=== PATIENT | male | born 1950 | race Caucasian/White ===

== ENCOUNTER 2018-06-18 10:28 | Emergency (ER) | payer OTHER ==
--- NOTE | 2018-06-18 10:39 | EDPHY ---
General Time Seen by Provider: 06/18/18 10:29 Narrative: CHIEF COMPLAINT: Back pain HISTORY OF PRESENT ILLNESS: Patient presents with complaints of low back pain. Pain is in the lumbar spine and somewhat right greater than left. It has been present for several days. He knows that this happens to 3 times per year and describes it as "my back goes out." The pain has been moderate to severe, starting to improve this morning. It is worse on the right than the left. Occasionally radiates into the right thigh. This caused him to fall several times, most recently yesterday. He has worse pain with palpation and movement. He has no numbness, tingling or weakness. He has no incontinence of bowel or bladder. He has been able to ambulate but very painful when doing so. He has been seen for this in the past and treated clinically with no formal diagnosis or intervention. No other associated complaints or modifying factors. REVIEW OF SYSTEMS: 10 systems were reviewed and negative with the exception of the elements mentioned in the history of present illness. PCP: [facility] SPECIALISTS: None currently PAST MEDICAL HISTORY: Back pain. PAST SURGICAL HISTORY: No surgical history SOCIAL HISTORY: Nonsmoker. Lives independently. Retired FAMILY HISTORY: Noncontributory EXAMINATION: Vitals: Triage VS reviewed General Appearance: Alert, no distress Head: normocephalic, atraumatic Eyes: Pupils equal and round, no conjunctival pallor or injection Neck: Normal inspection, supple, non-tender. No crepitus or deformity. No meningismus. Respiratory: Lungs are clear to auscultation Cardiovascular: Regular rate and rhythm no murmur Gastrointestinal: Abdomen is soft and nontender Back: Lumbar tenderness over the transverse processes and right lower paraspinous musculature. No midline crepitus, step-off or deformity. Range of motion is intact. Neurological: Cranial nerves 2-12 grossly intact. A&O, nonfocal, light sensory symmetric in the upper lower extremities. Strength is symmetric in the hips, knees, ankles. Normal proprioception of both great toes. Skin: Warm and dry, no rash Extremities: No bony tenderness. Range of motion of the extremities symmetric. Psychiatric: Mood and affect normal DIFFERENTIAL DIAGNOSES: Including but not limited to degenerative disc disease, disc bulge, disc herniation, lumbar vertebral fracture, sciatica MDM: 10:30 a.m. Acute low back pain that is consistent with patient's previous episodes of back pain and appears to be right of midline, consistent with sciatica. There is no evidence of meningitis or acute cord compression. I have ordered symptomatic medications and x-ray of the low back. 11:20 a.m. X-ray as read by me, without radiologist, reveals chronic changes no acute findings. I do feels like the patient has low back strain versus sciatica. He has no evidence of acute cord compression. We will ambulate the patient emergency department discussed with case management for assistance going home. He will likely need short course of symptomatic medications including Medrol Dosepak. I do recommend he follow up with primary care physician and a legal contracts specialist for definitive care. We discussed ED precautions for any worsening pain, numbness, tingling, weakness, incontinence of bowel or bladder, retention of bowel or bladder. 11:55 am. Patient has been visited by case management. She has provided resources for him to go home with. He has ambulated in the emergency depart without difficulty. We discussed symptomatic medications and follow up with his physicians. We discussed ED precautions as above. He is comfortable this plan. He is discharged home fully ambulatory in stable condition. SUPERVISION: This patient was independently evaluated without direct involvement of or examination by the attending physician. CONSULTATION: Case management - Diagnostics Imaging Results: Imaging Impressions Lumbar Spine X-Ray 06/18/18 10:40 Impression:L1-L2 degenerative disk disease; no acute fracture identified. - History Smoking Status: Never smoked - Objective Vital Signs: Initial Vital Signs Temperature (C) 97.9 F 06/18/18 10:29 Heart Rate 64 06/18/18 10:29 Respiratory Rate 16 06/18/18 10:29 Blood Pressure 155/91 H 06/18/18 10:29 O2 Sat (%) 96 06/18/18 10:29 O2 Delivery Mode Room Air Allergies/Adverse Reactions: No Known Allergies Allergy (Unverified 03/27/14 12:24) Home Medications: Medication Instructions Recorded No Home Meds 03/27/14 Acetaminophen [Tylenol] 650 mg PO Q6 PRN #30 capsule 06/18/18 Cyclobenzaprine [Cyclobenzaprine 5 mg PO TID PRN #12 tab 06/18/18 HCl] Ibuprofen 600 mg PO Q8 PRN #30 tablet 06/18/18 methylPREDNISolone [Medrol Dose 1 each PO AD #1 ea 06/18/18 Franki] Medications Given: Discontinued Medications Ibuprofen (Motrin) 400 mg PO EDNOW ONE Stop: 06/18/18 10:41 Last Admin: 06/18/18 10:43 Dose: 400 mg Departure - Departure Disposition: Home, Routine, Self-Care Clinical Impression: Acute low back pain Qualifiers: Back pain laterality: right Sciatica presence: with sciatica Sciatica laterality: sciatica of right side Qualified Code(s): M54.41 - Lumbago with sciatica, right side Sciatica Qualifiers: Laterality: right Qualified Code(s): M54.31 - Sciatica, right side Condition: Good Instructions: Sciatica (ED), Lumbar Radiculopathy (ED), Lower Back Exercises ( ED) Additional Instructions: 1. Medrol Dosepak as prescribed to completion 2. Flexeril as prescribed as needed 3. Ibuprofen 600 mg every 6-8 hours as needed for pain 4. Follow up with primary care physician and [facility] physician for definitive care 5. ED precautions for worsening pain, numbness, tingling, weakness, difficulty ambulating, incontinence of bowel or bladder, fever Referrals: [facility] [Outside] - As per Instructions [facility] [Outside] - As per Instructions Physician,Emergency Dept, MD [Medical Doctor] - As per Instructions Prescriptions: Acetaminophen [Tylenol] 650 mg PO Q6 PRN #30 capsule PRN Reason: back pain Cyclobenzaprine [Cyclobenzaprine HCl] 5 mg PO TID PRN #12 tab PRN Reason: muscle spasm Ibuprofen 600 mg PO Q8 PRN #30 tablet PRN Reason: Pain, Mild methylPREDNISolone [Medrol Dose Franki] 1 each PO AD #1 ea
[2018-06-18] MEDS ORDERED: IBUPROFEN 200 MG TAB PO ONE (10:40)
[2018-06-18 12:11] VITALS: BP 141/70
--- NOTE | 2018-06-18 17:57 | ASMTCMCOM ---
CM Note CM Note Notes: Pt presented to the ED via EMS from his apartment for back pain. Pt states he lives in an apartment through [employer]. Pt states he has had difficulty getting around his apartment, and cleaning up and caring for his dog. Pt states he plans on following up w/[facility] about getting set up with some extra help in his apt. Pt was provided a [facility] pamphlet and card for Isatu Goyal RN; pt states he will [facility] Pt states he was seen at [facility] "a long time ago" and otherwise is not followed by any other providers. Pt is very hard of hearing and has a cell phone but states he has difficulty operating it sometimes due to "all the buttons and options." Pt was able to ambulate well without any assistance while in the ED and called himself a cab ride home. This CM offered to have his Rxns filled by [facility] Kriss[facility] but pt preferred to get home sooner than later and said he'll fill them at a pharmacy of his choice. CM available for further assistance if needed. Date Signed: 06/18/2018 05:56 PM Electronically Signed By:Selena Chung RN
== END 2018-06-18 12:10 | disposition home or self-care (01) ==
LOC: EDUNIT#
DX: M54.41 Lumbago with sciatica, right side (principal)

== ENCOUNTER 2018-11-14 20:43 | Inpatient (IN) | payer OTHER, MEDICAID ==
--- NOTE | 2018-11-14 20:46 | EDPHY ---
HPI/HX/ROS/PE/MDM Narrative: CHIEF COMPLAINT: Fever, AMS HPI: This patient is a 68 year old male. He arrives via EMS today for evaluation of fever and altered mental status. Neighbors called EMS after they observed the patient acting strangely. The patient lives alone. EMS crews noted dark urine in the toilet bowl at the patient's home. Patient complains of back pain and says he is 'dying.' REVIEW OF SYSTEMS: A comprehensive 10 system review of systems is otherwise negative aside from elements mentioned in the history of present illness and medical decision making. PMH: Low back pain. SOCIAL HISTORY: Lives in [place]. Retired. Endorses marijuana use. PHYSICAL EXAM: General:Patient is alert, in no acute distress. He is cachectic and extremely hard of hearing. ENT:Eyes are normal to inspection. ENT inspection normal. Neck: Normal inspection. Full range of motion. Respiratory:No respiratory distress. Breath sounds normal bilaterally. Cardiovascular: Regular rate and rhythm. Strong peripheral pulses. Normal cap refill. Abdomen:The abdomen is nontender to palpation. There are no peritoneal signs. There are normal bowel sounds. Back: Normal to inspection. No tenderness to palpation. Skin: Normal color. No rash. Warm and dry. Extremities: Normal appearance. Full range of motion. Neuro: Normal motor function. Normal sensory function. ED Course: 20:47 Met EMS on arrival. 68 y/o male presents with possible altered mental status. History and exam limited as patient is quite hard of hearing. UA positive for hematuria. Labs reveal severe anemia, hyponatremia, elevated bilirubin. Patient's neighbor now at bedside who feels patient is unsafe at home and has increasing dementia. Given constellation of findings and safety concerns, we will admit the patient for further workup. - Data Points Laboratory Results: Laboratory Results 11/14/18 21:05 11/14/18 21:05 11/14/18 11/14/18 11/14/18 21:05 21:05 21:05 WBC 12.04 10^3/uL H 10^3/uL (3.80-9.50) RBC 2.72 10^6/uL L 10^6/uL (4.40-6.38) Hgb 9.3 g/dL L g/dL (13.7-17.5) Hct 25.4 % L % (40.0-51.0) MCV 93.4 fL fL (81.5-99.8) MCH 34.2 pg H pg (27.9-34.1) MCHC 36.6 g/dL g/dL (32.4-36.7) RDW 14.9 % % (11.5-15.2) Plt Count 183 10^3/uL 10^3/uL (150-400) MPV 11.3 fL fL (8.7-11.7) Neut % (Auto) 89.4 % H % (39.3-74.2) Lymph % (Auto) 6.2 % L % (15.0-45.0) [place] % (Auto) 2.7 % L % (4.5-13.0) Eos % (Auto) 0.1 % L % (0.6-7.6) Baso % (Auto) 0.2 % L % (0.3-1.7) Nucleat RBC Rel Count 0.2 % % (0.0-0.2) Absolute Neuts (auto) 10.76 10^3/uL H 10^3/uL (1.70-6.50) Absolute Lymphs (auto) 0.75 10^3/uL L 10^3/uL (1.00-3.00) Absolute Monos (auto) 0.33 10^3/uL 10^3/uL (0.30-0.80) Absolute Eos (auto) 0.01 10^3/uL L 10^3/uL (0.03-0.40) Absolute Basos (auto) 0.02 10^3/uL 10^3/uL (0.02-0.10) Absolute Nucleated RBC 0.02 10^3/uL H 10^3/uL (0-0.01) Immature Gran % 1.4 % H % (0.0-1.1) Immature Gran # 0.17 10^3/uL H 10^3/uL (0.00-0.10) PT 15.2 SEC H SEC (12.0-15.0) INR 1.25 H (0.83-1.16) Sodium 126 mEq/L L mEq/L (135-145) Potassium 3.2 mEq/L L mEq/L (3.5-5.2) Chloride 93 mEq/L L mEq/L (97-110) Carbon Dioxide 24 mEq/l mEq/l (22-31) Anion Gap 9 mEq/L mEq/L (6-14) BUN 33 mg/dL H mg/dL (7-23) Creatinine 0.9 mg/dL mg/dL (0.7-1.3) Estimated GFR > 60 Glucose 111 mg/dL H mg/dL (70-100) Calcium 8.6 mg/dL mg/dL (8.5-10.4) Total Bilirubin 4.2 mg/dL H mg/dL (0.1-1.4) Conjugated Bilirubin 1.4 mg/dL H mg/dL (0.0-0.5) Unconjugated Bilirubin 2.8 mg/dL H mg/dL (0.0-1.1) AST 64 IU/L H IU/L (17-59) ALT 57 IU/L IU/L (21-72) Alkaline Phosphatase 56 IU/L IU/L (38-126) Total Protein 6.5 g/dL g/dL (6.3-8.2) Albumin 3.0 g/dL L g/dL (3.5-5.0) Urine Color Urine Appearance Urine pH Ur Specific Fonda Urine Protein Urine Ketones Urine Blood Urine Nitrate Urine Bilirubin Urine Urobilinogen Ur Leukocyte Esterase Urine RBC Urine WBC Ur Epithelial Cells Urine Mucus Urine Glucose 11/14/18 21:00 WBC RBC Hgb Hct MCV MCH MCHC RDW Plt Count MPV Neut % (Auto) Lymph % (Auto) [place] % (Auto) Eos % (Auto) Baso % (Auto) Nucleat RBC Rel Count Absolute Neuts (auto) Absolute Lymphs (auto) Absolute Monos (auto) Absolute Eos (auto) Absolute Basos (auto) Absolute Nucleated RBC Immature Gran % Immature Gran # PT INR Sodium Potassium Chloride Carbon Dioxide Anion Gap BUN Creatinine Estimated GFR Glucose Calcium Total Bilirubin Conjugated Bilirubin Unconjugated Bilirubin AST ALT Alkaline Phosphatase Total Protein Albumin Urine Color EIVTA Urine Appearance HAZY Urine pH 5.0 (5.0-7.5) Ur Specific Fonda 1.017 (1.002-1.030) Urine Protein 1+ H (NEGATIVE) Urine Ketones NEGATIVE (NEGATIVE) Urine Blood 2+ H (NEGATIVE) Urine Nitrate NEGATIVE (NEGATIVE) Urine Bilirubin NEGATIVE (NEGATIVE) Urine Urobilinogen 4.0 EU H EU (0.2-1.0) Ur Leukocyte Esterase NEGATIVE (NEGATIVE) Urine RBC 1-3 /hpf /hpf (0-3) Urine WBC 1-3 /hpf /hpf (0-3) Ur Epithelial Cells NONE SEEN /lpf /lpf (NONE-1+) Urine Mucus TRACE /lpf /lpf (NONE-1+) Urine Glucose NEGATIVE (NEGATIVE) Medications Given: Discontinued Medications Sodium Chloride (Ns) 1,000 mls @ 0 mls/hr IV EDNOW ONE; Wide Open PRN Reason: Protocol Stop: 11/14/18 20:53 Last Admin: 11/14/18 21:08 Dose: 1,000 mls General Time Seen by Provider: 11/14/18 20:44 Initial Vital Signs: Initial Vital Signs Temperature (C) 37.1 C 11/14/18 21:00 Heart Rate 101 H 11/14/18 21:00 Respiratory Rate 18 11/14/18 21:00 Blood Pressure 115/75 11/14/18 21:00 O2 Sat (%) 96 11/14/18 21:00 O2 Delivery Mode Room Air Allergies/Adverse Reactions: No Known Allergies Allergy (Verified 11/15/18 08:49) Home Medications: Medication Instructions Recorded Acetaminophen [Tylenol] 650 mg PO Q6 PRN #30 capsule 06/18/18 Herbals/Supplements -Info Only 1 ea PO DAILY 11/15/18 Departure - Departure Disposition: [facility] ([place], [place]) Inpatient Acute Clinical Impression: Failure to thrive in adult, Dementia, Anemia, Hematuria, Hyponatremia Condition: Fair Report Scribed for: Emilio Leahy Report Scribed by: Estrella Meyer Date of Report: 11/14/18 Time of Report: 20:50 Physician Review and Approval Statement: Portions of this note were transcribed by an ED scribe. I personally performed the history, physical exam, and medical decision making; and confirm the accuracy of the information in the transcribed note.
[2018-11-14] MEDS ORDERED: NS 1,000 ML IV ONE ×2 (20:50→20:52)
[2018-11-14 21:22] LABS: PLATELET COUNT 183 10^3/uL (150-400)
[2018-11-14 21:34] LABS: INR 1.25 (0.83-1.16); PROTIME(PATIENT) 15.2 SEC (12.0-15.0)
[2018-11-15] MEDS ORDERED: ONDANSETRON 4 MG/2 ML VIAL IVP PRN (01:11)
[2018-11-15] MEDS ORDERED: ONDANSETRON DISINTEGRATING 4 MG TAB PO PRN (01:11)
[2018-11-15] MEDS ORDERED: POTASSIUM CL 20 MEQ TAB PO ONE ×2 (01:16→12:28)
[2018-11-15] MEDS: NS 1,000 ML IV SCH ×2 (02:10→17:28)
[2018-11-15 04:14] LABS: PLATELET COUNT 141 10^3/uL (150-400)
--- NOTE | 2018-11-15 07:34 | GHP ---
[f rep st] HISTORY AND PHYSICAL DATE OF ADMISSION: 11/14/2018 SOURCE: Patient provides history, is a fair historian. EMR was reviewed and case discussed with ED provider. CHIEF COMPLAINT: "My neighbors called because they thought I was acting funny." HISTORY OF PRESENT ILLNESS: This is a pleasant 68-year-old gentleman with a past medical history sig nificant for reported chronic pain, otherwise typically pretty healthy, who presents to the emergency department via EMS today for evaluation of altered mental status. Neighbors called EMS after they s aw the patient acting slightly abnormal. The patient does live alone, but he reports that his neighb ors usually try to help him. EMS brought the patient to the hospital from his home. At the time of my interview, patient denies any fevers, chills, chest pain, shortness of breath, nausea, vomiting, a bdominal pain, skin disorders, numbness or tingling. The patient goes off on tangents, but is redire ctable. The patient reports that he has been having increasing difficulties completing his ADLs. He feels generally weak. He also has had a few falls related to trip and fall on his 7-month-old puppy . The patient also had been driving up until this point, but he states that it is too much. REVIEW OF SYSTEMS: Ten systems reviewed, negative except as noted above. Patient is hard of hearing . Hears best on his left ear compared to the right. Does not have any hearing aids in place. Addit ionally, patient reports that he has lost weight over the last several months as his diet has changed significantly where previously was full of fresh foods and vegetables, and now is prepackaged foods with limited nutrition. The patient denies any night sweats. Weight loss as noted above. No change in appetite. PAST MEDICAL HISTORY: Significant for chronic back pain. Otherwise patient denies. PAST SURGICAL HISTORY: Patient denies. FAMILY HISTORY: Patient's brother with a history of leukemia. Mother and father . SOCIAL HISTORY: Patient is retired. He lives independently. He does not smoke or drink. He does u se marijuana and smokes herb. He has also utilized CBD oil. COR STATUS: Full. PHYSICAL EXAMINATION: VITAL SIGNS: Upon arrival to the emergency department, blood pressure is 115/ 75, heart rate 101, respiratory rate 18, O2 saturation 96% on room air, temperature 36.1. Current vi tals, blood pressure 86/49, heart rate 61, respiratory rate 12, O2 saturation 98, temperature 36.5. GENERAL: No acute distress. Very pleasant thin adult gentleman, elderly gentleman is lying quietly in bed. He is undergoing an abdominal ultrasound at the time of my visit. He does have some difficu lty hearing, cups his left ear. He is very pleasant. He has a long mad[place] as well as hair. Both are slightly disheveled. CV: Regular rate and rhythm. No murmurs, rubs, or gallops appreciated, but s lightly difficult due to patient talking during interview. RESPIRATORY: Lungs are clear to ausculta tion bilaterally. No wheezes, rales, or rhonchi appreciated. ABDOMEN: Positive bowel sounds. Soft , nontender to palpation. No rebound, guarding, or masses. : No suprapubic tenderness to palpati on. No Uriostegui catheter in place. MUSCULOSKELETAL: Patient moves all extremities. He is able to sit up independently. Strength is grossly normal. NEURO: Grossly nonfocal. No facial drooping. Move s all extremities as noted above. PSYCH: Thought process: Content seems plausible and appropriate. I do not have any way to verify patient's information regarding his living situation. He does note that his neighbors do take care of him quite a bit. His stories regarding his 7-month-old puppy are consistent. He otherwise is awake, alert, oriented, and answers questions appropriately. LABORATORY STUDIES: Initial WBC is 12.04, H and H is 9.3 and 35.4, MCV 93.4, platelet count is 183, neutrophil percent 89. No bands. Current a.m. blood work, WBC is 8.51, H and H is 7.5 and 21.0, MCV is 96.3, platelet count is 141, neutrophil percent 80.8, lymphocytes 14.5. PT is 15.2, INR is 1.25. Initial sodium is 126, potassium 3.2, chloride is 93, CO2 24, anion gap 9, BUN 33, creatinine 0.9. GFR greater than 60, glucose is 111, calcium is 8.6, total bilirubin is 4.2, conjugated is 1.4, ALT is 57, AST is 64, alk phos 56. Troponin is negative. Total protein 6.5, albumin is 3.0. TSH is 1.4 9. The patient's sodium did improve from 126 to 130, potassium slightly down from 3.2 to 3.1, magnes ium 1.9, total bilirubin 3.2, conjugated 1.2, ALT is 47, AST is 51. U tox is pending. UA: Specific gravity 1.017 with a pH of 5.6, protein is 1+, 2+ blood and 4 urobilinogen, otherwise negative. Nadja ges reviewed. Report is still pending. Briefly discussed with the water treatment operator. Patient does h ave numerous gallstones, but no evidence of obstruction. No abnormality seen in the bladder or right kidney. ASSESSMENT AND PLAN: Pleasant 68-year-old gentleman with a history of chronic pain who presents afte r Emergency Medical Service was called for abnormal behaviors. 1. Altered mental status. The patient's baseline is unclear. Very friendly, talkative, and otherwi se appears appropriate. He does note that he has been having progressive generalized weakness and di fficulties completing his activities of daily living. We will plan to consult physical therapy/occup ational therapy for failure to thrive. 2. Hyponatremia. The patient's sodium is improving after intravenous fluids and continue to monitor . 3. Hypokalemia. Replacement and monitoring. 4. Hypoalbuminemia due to patient's chronic illnesses. Hyperbilirubinemia is a little unusual. Ult rasound is still pending for additional evaluation. 5. Anemia. Following intravenous fluid administration is slightly down from 9.3 and 25.4 to 7.5 and 21.0. Patient without any evidence of active bleeding. Continue to monitor. 6. Fluid, electrolyte, nutrition. Intravenous fluids overnight. Electrolyte monitoring replacement as noted above. Advance diet as tolerated. 7. Prophylaxis. Sequential compression devices, holding anticoagulation. 8. COR status is full. 9. Disposition. Patient admitted to observation status on the medical/surgical floor for closer mon itoring, followup of labs and additional discussion potentially with the patient's neighbors at home. /[id number]/MODL
[2018-11-15] MEDS: ENOXAPARIN 40 MG/0.4 ML SYR SC SCH (10:39)
--- NOTE | 2018-11-15 17:20 | ASMTCMCOM ---
CM Note CM Note Notes: 11/15/2018 Case Management Note Pt admitted for AMS, FTT and hyponatremia. Pt is hard of hearing. Pt lives independently with supportive neighbors. Neighbor Karley Brandon [phone] called RN to check on pt today. Met w/pt to discuss therapy recommendations for SNF rehab. Pt in agreement. Faxed referrals to [facility], [facility], [facility] and [facility] at pt request. Case Management d/c poc: SNF rehab pending choice and acceptance. Case Management to follow. Date Signed: 11/15/2018 05:19 PM Electronically Signed By:Cielo Gant RN
[2018-11-15] MEDS: ACETAMINOPHEN 325 MG TAB PO PRN (18:31)
--- NOTE | 2018-11-15 18:45 | HOSPPROG ---
Hospitalist Progress Note Assessment/Plan: Acute vs chronic encephalopathy -Suspect 2/2 marijuana use but pt may have developing dementia vs psych disorder. -Pt may benefit from a psych consult. -Cog eval. Generalized weakness Hyponatremia, improved Failure to thrive -PT/OT -dietary consult -Palliative consult Hypokalemia -treated. Monitor labs. Hyperbilirubinemia Cholelithiasis, asymptomatic Hepatic steatosis, hepatomegaly Coagulopathy, mild Enlarged paraaortic lymph node -may consider to check abd CT if pt c/o abd pain. Tachycardia, mild Leukocytosis, resolved Thrombocytopenia, mild Anemia Possible lower GIB - suspect hemorrhoids -eval for bloody BM. -Recheck CBC in AM. Status- changing to inpatient for ongoing need for PT/OT eval, gen weakness, FTT , poor po intake-- unsafe to go home independently. Likely needs to go to a facility. VTE ppx - SCDs. Code status - Full. Subjective: Today pt says he has had hallucinations, in which the light "goes black" but is unable to describe further. He is afraid he is going to alone because he does not have anyone at home. He wants to drink a Coke. Otherwise, all he wants to do is sleep. Objective: General: The patient is a male who is alert and in no acute distress. HEENT: normocephalic, extraocular movements intact, conjunctivae clear. Nares and oral mucosa pink and dry. Neck: trachea midline, no visible masses, no external lesions. Resp: unlabored breathing. Abd: soft and nondistended. Musculoskeletal: Cachectic appearing, reduced muscle tone and bulk. Neuro: cranial nerves II - XII grossly intact. Intact gross motor and sensory function. Psych: Anxious mood/blunted affect. Skin: + pallor. Vital Signs Temp Pulse Resp BP Pulse Ox 36.6 C 107 H 19 111/67 98 11/15/18 15:32 11/15/18 15:40 11/15/18 15:32 11/15/18 15:32 11/15/18 15:40 11/14/18 11/15/18 11/16/18 05:59 05:59 05:59 Intake Total 900 Output Total 360 Balance 540 PT 15.2 SEC (12.0-15.0) H 11/14/18 21:05 INR 1.25 (0.83-1.16) H 11/14/18 21:05 - Time Spent With Patient Time Spent with Patient: greater than 35 minutes Time Spent with Patient: Greater than 35 minutes spent on this patients care, greater than 50% of time spent counseling, educating, and coordinating care regarding the above mentioned plan. ICD10 Worksheet Patient Problems: Problems Problem Status Onset Anemia Acute Dementia Acute Failure to thrive in adult Acute Hematuria Acute Hyponatremia Acute
[2018-11-16 04:35] LABS: PLATELET COUNT 159 10^3/uL (150-400)
--- NOTE | 2018-11-16 10:03 | PDMN ---
Medical Necessity Medical necessity: Change to IP, as of 11/15/18, per [facility] & [facility] General Discharge Criteria; los >2 mn for ongoing management of acute vs chronic encephalopathy w/hallucinations, generalized weakness & poor po intake; pt unsafe to return home safely; requiring further monitoring, cog eval, Palliative /Dietary/CM consults & therapies
[2018-11-16] MEDS: ENOXAPARIN 40 MG/0.4 ML SYR SC SCH (10:09)
[2018-11-16] MEDS: POTASSIUM CL 20 MEQ TAB PO SCH (10:09)
[2018-11-16] MEDS: ACETAMINOPHEN 325 MG TAB PO PRN (18:21)
--- NOTE | 2018-11-16 19:02 | HOSPPROG ---
Hospitalist Progress Note Assessment/Plan: Acute vs chronic encephalopathy -Suspect 2/2 marijuana use but pt may have developing dementia vs psych disorder. -Pt may benefit from a psych consult. -Cog eval. Generalized weakness Anemia Hypotension, episodic Possible lower GIB - suspect hemorrhoids Thrombocytopenia, mild -IVF. -Check Hemoccult. -check anemia studies in AM. -Monitor labs. -Will consider blood transfusion in AM. Definitely transfuse 1u PRBC if Hgb < 7. -Check hemoccult. Hyponatremia, improved Failure to thrive -PT/OT -Palliative consult appreciated. Hypokalemia -treated. Monitor labs. Hyperbilirubinemia (indirect, direct) Coagulopathy, mild Cholelithiasis, asymptomatic Hepatic steatosis, hepatomegaly Enlarged paraaortic lymph node -may consider to check abd CT if pt c/o abd pain. -trial vit K injection, recheck coag panel after. -Not w/ acute biliary obstruction at this time. Tachycardia, mild Protein-calorie malnutrition -Pt eating well now. -May have chronic malabsorption 2/2 gallstones/biliary issues. Leukocytosis, resolved Status- inpatient for ongoing need for PT/OT eval, gen weakness, FTT, poor po intake-- unsafe to go home independently. Likely needs to go to a facility. VTE ppx - SCDs. Code status - Full. ____ Subj: today pt still feels weak, tired. He walked around today. Obj: General: The patient is a male who is alert and in no acute distress. HEENT: normocephalic, extraocular movements intact, conjunctivae clear, no lesions on face. Nares and oral mucosa pink and moist. Neck: trachea midline, no visible masses, no external lesions. CV: +S1/S2, RRR, no MRG. Resp: unlabored, CTAB no RRW. Abd: soft and nondistended. Musculoskeletal: Reduced muscle tone and bulk. Neuro: cranial nerves II - XII grossly intact. Intact gross motor and sensory function. Psych: appropriate mood/affect. Heme/lymph: No peripheral edema. Skin: no pallor. Objective: Vital Signs Temp Pulse Resp BP Pulse Ox 36.6 C 86 18 110/59 L 99 11/16/18 15:18 11/16/18 15:18 11/16/18 15:18 11/16/18 15:18 11/16/18 15:18 Laboratory Results 11/16/18 03:58 11/16/18 03:58 11/15/18 11/16/18 11/17/18 05:59 05:59 05:59 Intake Total 1250 2360 Output Total 710 400 Balance 540 1960 PT 15.2 SEC (12.0-15.0) H 11/14/18 21:05 INR 1.25 (0.83-1.16) H 11/14/18 21:05 - Time Spent With Patient Time Spent with Patient: greater than 35 minutes Time Spent with Patient: Greater than 35 minutes spent on this patients care, greater than 50% of time spent counseling, educating, and coordinating care regarding the above mentioned plan. ICD10 Worksheet Patient Problems: Problems Problem Status Onset Anemia Acute Dementia Acute Failure to thrive in adult Acute Hematuria Acute Hyponatremia Acute
[2018-11-16] MEDS ORDERED: PHYTONADIONE 10 MG in NS 50 ML IV ONE (19:04)
[2018-11-16] MEDS: NS 1,000 ML IV SCH (20:41)
[2018-11-16] MEDS ORDERED: MELATONIN 3 MG TAB PO PRN (23:01)
[2018-11-17] MEDS: ACETAMINOPHEN 325 MG TAB PO PRN ×2 (02:17→23:06)
[2018-11-17 04:52] LABS: PLATELET COUNT 164 10^3/uL (150-400)
[2018-11-17 05:01] LABS: INR 1.2 (0.83-1.16); PROTIME(PATIENT) 14.7 SEC (12.0-15.0)
[2018-11-17] MEDS: ENOXAPARIN 40 MG/0.4 ML SYR SC SCH (08:45)
[2018-11-17] MEDS: POTASSIUM CL 20 MEQ TAB PO SCH (08:45)
[2018-11-17] MEDS ORDERED: BISACODYL 10 MG SUPP PR PRN (12:33)
[2018-11-17] MEDS ORDERED: MAGNESIUM HYDROXIDE 30 ML UDCUP PO PRN (12:33)
[2018-11-17] MEDS ORDERED: POLYETHYLENE GLYCOL 3350 17 GM PKT PO PRN (12:33)
[2018-11-17] MEDS ORDERED: LACTULOSE 20 GM/30 ML UDCUP PO PRN (12:33)
--- NOTE | 2018-11-17 14:34 | ASMTCMCOM ---
CM Note CM Note Notes: 11/17/2018 Case Management Note Discussed pt during rounds. Pt is more alert and oriented today, however therapies continue to recommend SNF. All three facilities accepted pt. Discussed w/pt. Pt chose [facility]. Updated [facility] on allscripts. Anticipating d/c tomorrow. Case Management d/c poc: [facility]. Case Management to follow. Date Signed: 11/17/2018 02:33 PM Electronically Signed By:Cielo Gant RN
--- NOTE | 2018-11-17 16:27 | HOSPPROG ---
Hospitalist Progress Note Assessment/Plan: Acute vs chronic encephalopathy CBD use -Suspect 2/2 marijuana use but pt may have developing dementia vs psych disorder. -Pt may benefit from a psych consult as an outpatient. -Cog eval. Generalized weakness Anemia, slightly macrocytic - 2/2 hemolysis/inflammation- unk cause Hypotension, episodic Possible lower GIB - suspect hemorrhoids Thrombocytopenia, mild -Check peripheral blood smear. 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 -Check vit B12, folate to r/o vitamin deficiency. -IVF. -Check Hemoccult. -FU haptoglobin (pending) -Will consider blood transfusion in AM. Definitely transfuse 1u PRBC if Hgb < 7. Hyponatremia, improved Failure to thrive -PT/OT -Palliative consult appreciated. Hypokalemia -treated. Monitor labs. Hyperbilirubinemia (indirect, direct) Coagulopathy, mild Cholelithiasis, asymptomatic Hepatic steatosis, hepatomegaly Enlarged paraaortic lymph node -may consider to check abd CT if pt c/o abd pain. -trial vit K injection given. Recheck coag panel in AM. -Not w/ acute biliary obstruction at this time. Tachycardia, mild Severe Protein-calorie malnutrition -Pt eating well now. -May have chronic malabsorption 2/2 gallstones/biliary issues. Leukocytosis, resolved Status- inpatient for ongoing need for PT/OT eval, gen weakness, FTT, poor po intake-- unsafe to go home independently. Likely needs to go to a facility. VTE ppx - SCDs. Code status - Full. ____ Subj: today pt still feels weak, tired but overall feels better. He walked around today. Eating well. Obj: General: The patient is a male who is alert and in no acute distress. HEENT: normocephalic, extraocular movements intact, conjunctivae clear. Nares and oral mucosa pink and moist. Neck: trachea midline, no visible masses, no external lesions. Resp: unlabored. Abd: soft and nondistended. Nontender. Musculoskeletal: Reduced muscle tone and bulk. Neuro: cranial nerves II - XII grossly intact. Intact gross motor and sensory function. Psych: appropriate mood/affect. Heme/lymph: No peripheral edema. Skin: no pallor. Objective: Vital Signs Temp Pulse Resp BP Pulse Ox 36.8 C 78 18 120/58 L 100 11/17/18 12:00 11/17/18 12:00 11/17/18 12:00 11/17/18 12:00 11/17/18 12:00 Laboratory Results 11/17/18 03:40 11/17/18 03:40 11/16/18 11/17/18 11/18/18 05:59 05:59 05:59 Intake Total 1250 2760 200 Output Total 710 1825 775 Balance 540 935 -575 PT 14.7 SEC (12.0-15.0) 11/17/18 03:40 INR 1.20 (0.83-1.16) H 11/17/18 03:40 - Time Spent With Patient Time Spent with Patient: greater than 35 minutes Time Spent with Patient: Greater than 35 minutes spent on this patients care, greater than 50% of time spent counseling, educating, and coordinating care regarding the above mentioned plan. ICD10 Worksheet Patient Problems: Problems Problem Status Onset Anemia Acute Dementia Acute Failure to thrive in adult Acute Hematuria Acute Hyponatremia Acute
[2018-11-17] MEDS ORDERED: IOPAMIDOL (ISOVUE-300) 100 ML BTL ONE (18:43)
[2018-11-17] MEDS: SENNOSIDES/DOCUSATE SODIUM TAB PO SCH (21:25)
[2018-11-18] MEDS: NS 1,000 ML IV SCH (03:15)
[2018-11-18 04:33] LABS: PLATELET COUNT 182 10^3/uL (150-400)
[2018-11-18 04:36] LABS: INR 1.24 (0.83-1.16); PROTIME(PATIENT) 15.1 SEC (12.0-15.0)
[2018-11-18] MEDS: SENNOSIDES/DOCUSATE SODIUM TAB PO SCH ×2 (07:55→21:52)
[2018-11-18] MEDS: POTASSIUM CL 20 MEQ TAB PO SCH (08:06)
[2018-11-18] MEDS: ENOXAPARIN 40 MG/0.4 ML SYR SC SCH (08:07)
[2018-11-18] MEDS: PANTOPRAZOLE SODIUM 40 MG TAB PO SCH (09:30)
[2018-11-18] MEDS: predniSONE 20 MG TAB PO SCH (09:30)
[2018-11-18] MEDS: FOLIC ACID 1 MG TAB PO SCH (09:30)
--- NOTE | 2018-11-18 13:34 | GCON ---
[f rep st] CONSULTATION INPATIENT HEMATOLOGY CONSULTATION DATE OF CONSULTATION: 11/18/2018 REQUESTING PHYSICIANS: Dr. Jaelyn Culver. REASON FOR CONSULTATION: Hemolytic anemia. HISTORY OF ILLNESS: The patient is a 68-year-old man with a newly diagnosed autoimmune hemolytic anemia. He was brought into the hospital by friends, who said he was acting a little strange. He reports that he has been feeling very tired recently and has began to develop some difficulty driving. He denies any weight loss, fevers, or chills. On arrival, his white count was 12.4, hemoglobin 9.3, platelets of 103. LDH was elevated at 1092, ferritin 1300, B12 normal, TSH normal, and a reticulocyte count mildly elevated to 6%. Abdominal imaging revealed some fatty infiltration of the liver without splenomegaly. A CT scan of the abdomen revealed similar findings plus a couple of mildly enlarged retroperitoneal lymph nodes up to 2.2 cm. A direct Tono test was positive for an IgG antibody. PAST MEDICAL HISTORY: Otherwise unremarkable. CURRENT MEDICATIONS: Lovenox 40 mg subcutaneously daily, melatonin, Zofran, Senokot. ALLERGIES: No known drug allergies. FAMILY HISTORY: Noncontributory. SOCIAL HISTORY: He denies tobacco or alcohol use, but does use marijuana regularly. He lives alone. He is not working. REVIEW OF SYSTEMS: Aside from the pertinent positives in the HPI, a 14-point review of systems is negative. EXAMINATION: VITAL SIGNS: Temperature is 36.6, blood pressure 108/64, heart rate 85, oxygen saturation 100% on room air. GENERAL: He is a thin man who appeared comfortable and in no acute distress. HEENT: Sclerae are anicteric. Oropharynx is clear. NECK: Supple, without lymphadenopathy. LUNGS: Clear to auscultation bilaterally. CARDIAC: Regular rate and rhythm. No murmurs, gallops, or rubs. ABDOMEN: Normoactive bowel sounds. Nontender. EXTREMITIES : Without edema. 2+ pulses. NEUROLOGIC: He is alert and oriented x3. Strength, sensation, and gait were normal. LABORATORY DATA: Today, white count 6.17, hemoglobin 7.1, MCV 101, platelets of 182. Basic metabolic panel was unremarkable. IMPRESSION: This is a 68-year-old man presenting with what appears to be an autoimmune hemolytic anemia. The etiology is unclear. He has some mildly enlarged retroperitoneal lymph nodes, which could indicate an occult lymphoma, although are also fairly nonspecific. RECOMMENDATIONS: 1. We will start the patient on prednisone 60 mg daily to treat the anemia, along with Protonix. I will also give him some folate, which he may become deficient in due to the rapid production of new cells. 2. Evaluation for underlying causes ongoing, including an KRISSY, a flow cytometry to look for evidence of lymphoproliferative disorder, and hepatitis and HIV serology. 3. Once his hemoglobin is improving, he can be discharged and we will taper the prednisone slowly over a period of months in the outpatient setting. Thank you for this consultation. /[id number]/MODL MTDD
--- NOTE | 2018-11-18 16:09 | HOSPPROG ---
Hospitalist Progress Note Assessment/Plan: Generalized weakness Anemia, slightly macrocytic - 2/2 hemolysis/inflammation- unk cause, possibly AI Hypotension, episodic Possible lower GIB- hemorrhoidal Thrombocytopenia, mild -Check peripheral blood smear. -Cuffer-oncologist consulted - starting pt on prednisone, additional workup sent. Does not recommend supplemental iron or blood transfusion. -Several tests pending to r/o lymphoma, infection, etc. -Pt can likely be DC'd to facility in a couple days w/ instructions to FU w/ HemOnc in outpt setting -DC IVF. Failure to thrive, resolved Severe Protein-calorie malnutrition Dehydration - resolved Hypokalemia Hyponatremia, improved -Pt eating well now. -May have chronic malabsorption 2/2 gallstones/biliary issues. -PT/OT -Palliative consult appreciated. -treated. Monitor labs. Encephalopathy, toxic metabolic -resolved, pt appears to be at baseline Cognitive impairment -Suspect 2/2 CBD (cannabis) use but pt may have developing dementia vs psych disorder. -Pt may benefit from a psych consult as an outpatient. -Cog eval indicates pt can't live independently. -Pt is fine w/ his neighbor being his medical proxy. Asked CM to start working on process of medical proxy. Hyperbilirubinemia (indirect, direct) Coagulopathy, mild Cholelithiasis, asymptomatic Hepatic steatosis, hepatomegaly Enlarged paraaortic lymph node -Gave vit K injection given which did not really help. -Not w/ acute biliary obstruction at this time. Tachycardia, mild - resolved Leukocytosis, resolved Status- unsafe to go home independently. Likely needs to go to a nursing home care facility. VTE ppx - SCDs. Code status - Full. ____ Subj: today pt a little stronger. He has been eating well and walking. Obj: General: The patient is a male who is alert and in no acute distress. HEENT: normocephalic, extraocular movements intact, conjunctivae clear. Nares and oral mucosa pink and moist. Neck: trachea midline, no visible masses, no external lesions. Resp: unlabored. Abd: soft and nondistended. Nontender. Musculoskeletal: Reduced muscle tone and bulk. Neuro: cranial nerves II - XII grossly intact. Intact gross motor and sensory function. Psych: appropriate mood/affect. Heme/lymph: No peripheral edema. Skin: no pallor. Objective: Vital Signs Temp Pulse Resp BP Pulse Ox 36.8 C 81 18 105/63 98 11/18/18 12:00 11/18/18 12:00 11/18/18 12:00 11/18/18 12:00 11/18/18 12:00 Laboratory Results 11/18/18 04:06 11/18/18 04:06 11/17/18 11/18/18 11/19/18 05:59 05:59 05:59 Intake Total 2766 4389 956 Output Total 1826 4475 1400 Balance 935 -86 -444 PT 15.1 SEC (12.0-15.0) H 11/18/18 04:06 INR 1.24 (0.83-1.16) H 11/18/18 04:06 - Time Spent With Patient Time Spent with Patient: greater than 35 minutes Time Spent with Patient: Greater than 35 minutes spent on this patients care, greater than 50% of time spent counseling, educating, and coordinating care regarding the above mentioned plan. ICD10 Worksheet Patient Problems: Problems Problem Status Onset Anemia Acute Dementia Acute Failure to thrive in adult Acute Hematuria Acute Hyponatremia Acute
[2018-11-19 04:08] LABS: HEPATITIS B CORE AB TOTAL REACTIVE (NEGATIVE); HEPATITIS B SURFACE ANTIGEN NEGATIVE (NEGATIVE); HEPATITIS C ANTIBODY TOTAL REACTIVE (NEGATIVE); HIV TYPE 1 AND 2 NEGATIVE (NEGATIVE)
[2018-11-19 04:33] LABS: PLATELET COUNT 229 10^3/uL (150-400)
[2018-11-19 05:15] LABS: HEPATITIS B CORE AB IGM NEGATIVE (NEGATIVE)
[2018-11-19] MEDS: predniSONE 20 MG TAB PO SCH (08:16)
[2018-11-19] MEDS: FOLIC ACID 1 MG TAB PO SCH (08:17)
[2018-11-19] MEDS: POTASSIUM CL 20 MEQ TAB PO SCH (08:17)
[2018-11-19] MEDS: PANTOPRAZOLE SODIUM 40 MG TAB PO SCH (08:18)
[2018-11-19] MEDS: ENOXAPARIN 40 MG/0.4 ML SYR SC SCH (08:18)
[2018-11-19] MEDS: SENNOSIDES/DOCUSATE SODIUM TAB PO SCH (08:51)
--- NOTE | 2018-11-19 13:39 | PDIAF ---
- Diagnosis Diagnosis: autoimmune hemolytic anemia Code Status: Full Code - Medication Management Discharge Medications: electronically signed and located in the Home Medication List. - Orders Services needed: Registered Nurse, Physical Therapy, Occupational Therapy, Speech Language Pathologist Diet Recommendation: no restrictions on diet Additional Instructions: Follow up with Dr. Escobar at [facility] in 1-2 weeks. - Labs/Radiology CBC w/diff Date: 11/21/18 (results to Dr. Escobar) - Follow Up Care Current Providers and Referrals: Patient,NotPresent [Unknown] - As per Instructions Emilio Escobar MD [Medical Doctor] -
--- NOTE | 2018-11-19 14:10 | ASMTLACE ---
LACE Length of stay for Answers: 4-6 days current admission Acuity / Level of Answers: Yes Care: Did the patient have an inpatient admission? Comorbidities - select Answers: Opioid dependence all that apply / Chronic pain # of Emergency department Answers: 1-2 visits in the last 6 months Score: 12 Date Signed: 11/19/2018 02:08 PM Electronically Signed By:CHANCE Harrell
--- NOTE | 2018-11-19 14:16 | ASDISCHSUM ---
Discharge Information Plan Status:SNF Medically Cleared to Leave:11/19/2018 Discharge Date:11/19/2018 CM D/C Disposition: ADT D/C Disposition:[facility] Care Facility Projected Discharge Date:11/19/2018 11:00 AM Transportation at D/C: Discharge Delay Reason: Follow-Up Date:11/19/2018 11:00 AM Discharge Slot: Final Diagnosis: Placement Information Referral Type:*Assisted/SNF Referral ID:[id number] Provider Name:[facility] [place] Address 1:[address] Address 2: City:[place] Selection Factors: State:[place] Referral Type:Palliative Care Referral ID:[id number] Provider Name:[facility] Address 1:[address] Phone Number: Address 2: Fax Number: [facility] Selection Factors: State:[place] Patient Contact Information Contact Name:MAURO Relationship:Friend Address: Work Phone: City: [place] Phone: State/Zip Code: Email: Financial Information Financial Class:Medicare Primary Plan Desc:MEDICARE INPATIENT Primary Plan Number:[id number] Secondary Plan Desc:MEDICAID [facility] Secondary Plan Number:[id number] Assessment Information LACE LACE Length of stay for Answers: 4-6 days current admission Acuity / Level of Answers: Yes Care: Did the patient have an inpatient admission? Comorbidities - select Answers: Opioid dependence all that apply / Chronic pain # of Emergency department Answers: 1-2 visits in the last 6 months Score: 12 Date Signed: 11/19/2018 02:08 PM Electronically Signed By:CHANCE Harrell [facility] CM Progress Note CM Note CM Note Notes: 11/15/2018 Case Management Note Pt admitted for AMS, FTT and hyponatremia. Pt is hard of hearing. Pt lives independently with supportive neighbors. Neighbor Karley [facility] [phone] called RN to check on pt today. Met w/pt to discuss therapy recommendations for SNF rehab. Pt in agreement. Faxed referrals to [facility], [facility] and [facility] at pt request. Case Management d/c poc: SNF rehab pending choice and acceptance. Case Management to follow. Date Signed: 11/15/2018 05:19 PM Electronically Signed By:Cielo Gant RN [facility] CM Progress Note CM Note CM Note Notes: 11/17/2018 Case Management Note Discussed pt during rounds. Pt is more alert and oriented today, however therapies continue to recommend SNF. All three facilities accepted pt. Discussed w/pt. [facility]. [facility]scripts. Anticipating d/c tomorrow. Case Management d/c poc: [facility]. Case Management to follow. Date Signed: 11/17/2018 02:33 PM Electronically Signed By:Cielo Gant RN Case Management Discharge Plan Note Case Management Discharge Discharge Order Complete? Answers: Yes Patient to Obtain Answers: Other Notes: [facility] Medications Transportation Arranged Answers: Other Notes: [facility] w/c transport Transport will Pick (Date 11/19/2018 04:30 PM & Time) EMTALA Complete Answers: No Case Management Transport Answers: No Form Complete Faxed Final Orders Answers: Yes Agency/Facility Transfer Answers: Yes Report Printed & Faxed to Receiving Agency Family Notified Answers: No Discharge Comments Notes: Pts case discussed w/ Dr. Renee. [facility] orders [facility] Gretchen, RN will call to give report. CM notified pts friend Karley of the d/c (P#: [phone]). CM available for changes. Plan: [facility] Date Signed: 11/19/2018 02:13 PM Electronically Signed By:CHANCE Harrell Intervention Information Intervention Type:*PAREDES-Signed Date of Service:11/15/2018 10:14 AM Patient Type:Observation Staff Member:Elisa Thacker Hours: Discipline: Severity: Comment: Intervention Type:*IM-Signed Date of Service:11/19/2018 02:04 PM Patient Type:Inpatient Staff Member:Elisa Thacker Hours: Discipline: Severity: Comment:
--- NOTE | 2018-11-19 15:09 | SOAPPROG ---
SOAP Progress Note Assessment/Plan: E&M for anemia * Tono positive hemolytic anemia: He is currently on prednisone 60 mg daily and generally tolerating it well. There is some early signs that the hemolysis may be slowing down. Sometimes patient can have a little more responsive than deeper response with the addition of rituximab but with his previous hepatitis B exposure this could be problematic. Since he is otherwise doing well I recommended holding off for now. I typically like to keep patients at this dose for the first couple weeks and then do a slow taper after that. There is no contraindication from a hematological standpoint to leaving the hospital but he should follow-up with Dr. Escobar closely on a weekly basis. * Hepatitis C antibody positive and hepatitis B core antibody positive: These could just indicate previous infections and I recommended checking the DNA and have him follow-up with Dr. Escobar. Fortunately has hepatitis B surface antigen is negative as well as his HIV. Subjective: He reports he is tolerating steroids well and overall feels much better than he did previously. He is currently working with physical therapy. Objective: Vital Signs Temp Pulse Resp BP Pulse Ox 36.6 C 75 18 120/74 100 11/19/18 07:28 11/19/18 07:28 11/19/18 07:28 11/19/18 07:28 11/19/18 07:28 Laboratory Results 11/19/18 04:00 11/18/18 04:06 11/18/18 11/19/18 11/20/18 05:59 05:59 05:59 Intake Total 4389 1526 Output Total 4475 2275 Balance -86 -749 PT 15.1 SEC (12.0-15.0) H 11/18/18 04:06 INR 1.24 (0.83-1.16) H 11/18/18 04:06 Laboratory Tests 11/15/18 11/17/18 11/17/18 03:58 03:40 17:51 Hgb Total Bilirubin 3.2 H Lactate Dehydrogenase 1092 H Vitamin B12 Folate Hep B Core Total Ab REACTIVE H Hepatitis C Antibody REACTIVE H HIV 1&2 Antibody NEGATIVE 11/18/18 11/18/18 11/19/18 04:06 04:06 04:00 Hgb 7.1 L 7.7 L Total Bilirubin Lactate Dehydrogenase Vitamin B12 425 Folate 9.13 Hep B Core Total Ab Hepatitis C Antibody HIV 1&2 Antibody SPEP negative Physical Exam - Physical Exam General Appearance: no apparent distress EENT: No scleral icterus (R), No scleral icterus (L) Respiratory: lungs clear Cardiac/Chest: regular rate, rhythm Abdomen: No splenomegaly ICD10 Worksheet Patient Problems: Problems Problem Status Onset Anemia Acute Dementia Acute Failure to thrive in adult Acute Hematuria Acute Hyponatremia Acute
[2018-11-19 16:06] VITALS: BP 114/81
--- NOTE | 2018-11-19 21:29 | GDS ---
[f rep st] DISCHARGE SUMMARY DISCHARGE DIAGNOSES: 1. Autoimmune hemolytic anemia. 2. Mild hyponatremia. 3. Toxic metabolic encephalopathy in the setting of chronic cannabis use and possibly underlying dem entia. 4. Failure to thrive. 5. Severe protein calorie malnutrition. 6. Hyperbilirubinemia, likely secondary to Gilbert's. 7. Enlarged para-aortic lymph node. Plan for outpatient followup with Hematology/Oncology. 8. Cholelithiasis. CONSULTANTS: Dr. Emilio Escobar, hematology/oncology. HISTORY: For details, please see history and physical dated November 15, 2018. In brief, the patient is a 68-year-old male who presented to the emergency department after his neighbors called EMS due to con cern for altered mental status. He was found to have some electrolyte abnormalities in addition to a nemia and was admitted to the hospital for further management. HOSPITAL COURSE: The patient was admitted to the cardiac telemetry unit. He had a mildly elevated b ilirubin which was mostly unconjugated, and an abdominal ultrasound was performed. This revealed cho lelithiasis. However, the patient has remained asymptomatic without signs of infection. Therefore, surgical consult was not pursued. He was found to have worsening anemia with his hemoglobin dropping from 9.3 to 7.1. He had a direct Tono test that was positive for an IgG antibody, as well as an e levated LDH. This raised suspicion for an autoimmune hemolytic anemia, and hematology consult was ob tained. He was started on high-dose prednisone, and this will be continued at discharge. I have pro vided a 2-week prescription, and during that time, he should have followup with Hematology for furthe r taper plan. In addition, at the time of discharge, an antinuclear antibody with flow cytometry and free light chains analysis are pending. Hepatitis and HIV serologies were checked, and he had a pos itive hepatitis B core antibody suggesting prior infection which has cleared. His hepatitis B surfac e antigen was negative. In addition, he had a reactive hepatitis C antibody. At the time of dischar , hepatitis C RNA PCR is pending, as well as hepatitis B DNA. His HIV test was negative. CT chest , abdomen, and pelvis was performed and revealed some nonspecific para-aortic lymph nodes measuring u p to 2.2 mm. Lymphoma is on the differential. These will be followed up by Hem/Onc. With respect t o his altered mental status, he underwent a cognition eval scoring 14/30 on the SLUMS evaluation. It became evident that he was unable to care for himself, and he was ultimately agreeable to transition to a shelter facility, followed by long-term care for increased support. DISPOSITION: Patient is discharged to shelter facility in stable condition. FOLLOWUP: 1. Dr. Emilio Escobar, hematology/ oncology. 2. Primary Care. DISCHARGE MEDICATIONS: Please see [facility] for completed outpatient medication list. New medications on discharge include: 1. Folic acid 1 mg p.o. daily. 2. Melatonin 3 to 6 mg p.o. q.h.s. p.r.n. 3. Protonix 40 mg p.o. daily. 4. MiraLAX 17 g p.o. daily p.r.n. 5. Prednisone 60 mg p.o. daily for 2 weeks, further taper after that as directed by Hematology. 6. Senokot-S 1 to 2 tabs p.o. b.i.d. p.r.n. He will continue aspirin 650 p.o. q.6 hours p.r.n. /[id number]/MODL
== END 2018-11-19 16:35 | DRG 808 ==
LOC: EDUNIT# → F2W 22:55 → OBSVTOIN 11-15 12:28
PROVIDERS: ADMIT Family Medicine; ATTEND Internal Medicine
DX: D59.1 Other autoimmune hemolytic anemias (principal); G92 Toxic encephalopathy; E43 Unspecified severe protein-calorie malnutrition; E87.1 Hypo-osmolality and hyponatremia; F12.90 Cannabis use, unspecified, uncomplicated; E86.0 Dehydration; R62.7 Adult failure to thrive; E80.4 Gilbert syndrome; K80.20 Calculus of gallbladder without cholecystitis without obstruction; F03.90 Unspecified dementia, unspecified severity, without behavioral disturbance, psychotic disturbance, mood disturbance, and anxiety; R59.0 Localized enlarged lymph nodes
CPT/HCPCS: 82607-90; 83010-90; 86334-90; 86704-90; 86705-90; 86860-90; 87517-90; 92523-GN; 97112-GP; 97116-GP; 97161-GP; 97166-GO; 97530-GO; 97530-GP; 97535-GO; G0472; G0480; J1650; J3430; J7512; Q9967